=== PATIENT | male | born 1985 | race Caucasian/White ===

== ENCOUNTER 2017-03-27 02:52 | Emergency (ER) | payer MEDICARE, MEDICAID ==
[~2017-03-27] VITALS: Ht 167.6 cm; Wt 128.8 kg
[2017-03-27] MEDS ORDERED: ALBUTEROL SULFATE 2.5 MG/3 ML ONE (03:19)
[2017-03-27] MEDS ORDERED: ALBUTEROL SULFATE 2.5 MG/3 ML NPPB ONE (03:30)
[2017-03-27 04:28] VITALS: BP 121/57
== END 2017-03-27 04:53 | disposition home or self-care (01) ==
LOC: ED 04:47
DX: J45.31 Mild persistent asthma with (acute) exacerbation (principal); I10 Essential (primary) hypertension
CPT/HCPCS: 71010; 94640; 99283; J7512; J7613

== ENCOUNTER 2017-09-20 12:32 | Emergency (ER) | payer MEDICARE, MEDICAID ==
[~2017-09-20] VITALS: Ht 167.6 cm; Wt 123.0 kg
[2017-09-20 13:04] VITALS: BP 155/88
== END 2017-09-20 13:30 | disposition home or self-care (01) ==
LOC: ED 13:10
DX: H65.02 Acute serous otitis media, left ear (principal); J45.909 Unspecified asthma, uncomplicated; J00 Acute nasopharyngitis [common cold]; Z88.0 Allergy status to penicillin; I10 Essential (primary) hypertension; H92.02 Otalgia, left ear
CPT/HCPCS: 99283

== ENCOUNTER 2017-11-23 14:10 | Emergency (ER) | payer MEDICARE, MEDICAID ==
[~2017-11-23] VITALS: Ht 167.6 cm; Wt 119.7 kg
[2017-11-23 14:11] VITALS: BP 137/84
[2017-11-23] MEDS ORDERED: DEXAMETHASONE 4 MG TABLET PO ONE (15:00)
[2017-11-23] MEDS ORDERED: DEXAMETHASONE 4 MG TABLET ONE (15:00)
== END 2017-11-23 15:56 | disposition home or self-care (01) ==
LOC: ED 15:45
DX: J45.31 Mild persistent asthma with (acute) exacerbation (principal); B34.9 Viral infection, unspecified; I10 Essential (primary) hypertension
CPT/HCPCS: 71046; 87081; 87880; 99285

== ENCOUNTER 2018-05-30 04:09 | Emergency (ER) | payer MEDICARE, MEDICAID ==
[~2018-05-30] VITALS: Ht 167.6 cm; Wt 115.9 kg
[2018-05-30 04:11] VITALS: BP 153/98
[2018-05-30] MEDS ORDERED: HYDROcodone/APAP 5/325 TABLET PO ONE (05:00)
[2018-05-30] MEDS ORDERED: HYDROcodone/APAP 5/325 TABLET ONE (05:17)
== END 2018-05-30 05:58 | disposition home or self-care (01) ==
LOC: ED 05:37
DX: K08.89 Other specified disorders of teeth and supporting structures (principal); I10 Essential (primary) hypertension; J45.909 Unspecified asthma, uncomplicated; H92.09 Otalgia, unspecified ear
CPT/HCPCS: 99283

== ENCOUNTER 2019-01-13 05:55 | Emergency (ER) | payer MEDICAID, MEDICARE ==
[~2019-01-13] VITALS: Ht 167.6 cm; Wt 121.5 kg
[2019-01-13 05:58] VITALS: BP 160/98
[2019-01-13] MEDS ORDERED: HYDROcodone/APAP 5/325 TABLET ONE (06:21)
[2019-01-13] MEDS ORDERED: HYDROcodone/APAP 5/325 TABLET PO ONE (06:30)
== END 2019-01-13 06:28 | disposition home or self-care (01) ==
LOC: ED 06:21
DX: K02.9 Dental caries, unspecified (principal); J45.909 Unspecified asthma, uncomplicated; I10 Essential (primary) hypertension
CPT/HCPCS: 99283

== ENCOUNTER 2019-01-15 20:50 | Emergency (ER) | payer MEDICAID ==
[~2019-01-15] VITALS: Ht 167.6 cm; Wt 122.0 kg
[2019-01-15 20:52] VITALS: BP 147/92
[2019-01-15] MEDS ORDERED: HYDROcodone/APAP 5/325 TABLET PO ONE (21:30)
[2019-01-15] MEDS ORDERED: HYDROcodone/APAP 5/325 TABLET ONE (21:31)
--- NOTE | 2019-01-15 22:19 | NUR ---
PT GIVEN DC INSTRUCTIONS. PT STATES PAIN IMPROVED S/P NORCO, REFUSES REPEAT VS. PT A&O, RESPS EVEN AND UNLABORED, NADN AT DC. PT AMB TO DC DESK WITH STEADY GAIT, ACCOMPANIED BY FAMILY. PT EDUCATED NOT TO DRIVE TONIGHT D/T MEDS GIVEN, VERBALIZES UNDERSTANDING.
== END 2019-01-15 22:20 | disposition home or self-care (01) ==
LOC: ED 21:48
DX: K08.89 Other specified disorders of teeth and supporting structures (principal); I10 Essential (primary) hypertension; J45.909 Unspecified asthma, uncomplicated
CPT/HCPCS: 99282; 99284

== ENCOUNTER 2020-08-24 20:36 | Emergency (ER) | payer MEDICARE, MEDICAID ==
[~2020-08-24] VITALS: Ht 167.6 cm; Wt 115.0 kg
[2020-08-24] MEDS ORDERED: DIAZEPAM 5 MG/ML, 2ML IVPush ONE (21:30)
[2020-08-24] MEDS ORDERED: HYDROmorphone 2 MG/ML, 1ML IVPush PRN (21:30)
[2020-08-24] MEDS ORDERED: PLEASE ENTER WEIGHT MC SCH (21:30)
[2020-08-24] MEDS ORDERED: DIAZEPAM 5 MG/ML, 2ML ONE (21:46)
[2020-08-24] MEDS ORDERED: HYDROmorphone 1 MG/ML, 1ML INJ ONE (21:46)
--- NOTE | 2020-08-24 22:09 | NUR ---
THIS PT PRESENTS TO THE ER IN "HIS MOTHER'S WHEELCHAIR" BECAUSE HE'S BEEN "UNABLE TO WALK." PT HAS COMPLAINT OF BACK SPASMS AND PAIN. PT IS "EXTREMELY CLAUSTRIPHOBIC" MEDICATED TO MAR FOR THIS PRIOR TO MRI. PT TO MRI AT THIS TIME.
[2020-08-24 22:28] LABS: BASOPHILS % (AUTO) 1 % (0-1); EOSINOPHILS % (AUTO) 2 % (1-7); LYMPHOCYTES % (AUTO) 23 % (22-44); MEAN CORPUSCULAR HEMOGLOBIN 28.1 pg (27.5-34.5); MEAN CORPUSCULAR HGB CONC 33.1 g/dL (33.2-36.2); MEAN PLATELET VOLUME 8.2 fL (7.4-10.4); MONOCYTES % (AUTO) 6 % (2-9); NEUTROPHILS % (AUTO) 69 % (42-75); PLATELET COUNT 274 x10^3/uL (130-400); RED BLOOD COUNT 4.83 x10^6/uL (4.38-5.82); RED CELL DISTRIBUTION WIDTH 14.1 % (9.4-14.8)
[2020-08-24 22:33] LABS: ANION GAP 5 mmol/L (5-15); CALCIUM 8.6 mg/dL (8.5-10.1); CHLORIDE 107 mmol/L (98-107); CREATININE 1.01 mg/dL (0.7-1.3)
[2020-08-24 22:37] LABS: MD NO
--- NOTE | 2020-08-24 22:42 | NUR ---
PT BACK FROM MRI. PER BI DATA MODELER, UNABLE TO OBTAIN SCAN. WHILE IN IMAGING PT STATES "I'M GOING TO BREAK THE MACHINE, I CAN'T DO THIS." PER BI DATA MODELER PT WAS EXTREMELY SHAKING. PT BACK TO ROOM, NO VISIBLE SHAKING NOTICED WHEN THE RN WALKS BY ROOM, PT BEGINS SHAKING WHEN MD GASPAR AND THIS RN BACK TO ROOM. PT UPATED ON POC, INCLUDING OUT PATIENT MRI. PT AGREES WITH THIS PLAN. [place].
[2020-08-24 23:05] VITALS: BP 143/83
== END 2020-08-24 23:08 | disposition home or self-care (01) ==
LOC: ED 21:23
DX: M54.5 Low back pain (principal); R07.9 Chest pain, unspecified; I10 Essential (primary) hypertension; J45.909 Unspecified asthma, uncomplicated; Z90.89 Acquired absence of other organs; W18.30XA Fall on same level, unspecified, initial encounter; Y93.89 Activity, other specified; Y92.89 Other specified places as the place of occurrence of the external cause; Y99.8 Other external cause status
CPT/HCPCS: 36415; 71045; 80048; 82040; 85025; 96374; 96375; 99284; J1170; J3360